=== PATIENT | female | born 1995 | race Caucasian/White ===

== ENCOUNTER 2017-05-27 10:05 | Emergency (ER) | payer OTHER ==
[~2017-05-27] VITALS: Ht 182.9 cm; Wt 56.5 kg
[~2017-05-27 10:05] MED LIST: ALBU1.25 NEB; OMEP20CA5 PO; PRED20 PO
[2017-05-27 10:09] VITALS: BP 132/82; PULSE 92; RESP 12; TEMP 98.2; O2SAT 98
[2017-05-27] MEDS ORDERED: TETANUS/DIPHTHERIA TOXOID ADULT 0.5 ML VIAL IM ONE (10:45)
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
[2017-05-27 12:00] VITALS: BP 120/81; PULSE 86; RESP 15; TEMP 97.7; O2SAT 98
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
[2017-05-27] MEDS ORDERED: IOHEXOL 350 MG/ML 10 ML VIAL (for RAD DIAG) IVCONTRAST ONE (12:03)
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
[2017-05-27] MEDS ORDERED: HYDR-3577 PO (13:43)
[2017-05-27] MEDS ORDERED: CYCL10TA PO (13:43)
[2017-05-27] MEDS ORDERED: KETOROLAC TROMETHAMINE 60 MG/2 ML (IM) VIAL IM ONE (13:45)
[2017-05-27 14:00] VITALS: BP 118/76; PULSE 77; RESP 15; TEMP 97.9; O2SAT 99
[2017-05-27] MEDS ORDERED: [UNRECOGNIZED DRUG - CODE] PO (14:08)
[2017-05-27 14:48] VITALS: RESP 16
[2017-05-27 15:23] VITALS: BP 120/67; TEMP 97.7
== END 2017-05-27 15:25 | disposition home or self-care (01) ==
LOC: NEPC 10:05
DX: S22.42XA Multiple fractures of ribs, left side, initial encounter for closed fracture (principal); S09.90XA Unspecified injury of head, initial encounter; M50.222 Other cervical disc displacement at C5-C6 level; S00.81XA Abrasion of other part of head, initial encounter; S00.03XA Contusion of scalp, initial encounter; Y08.89XA Assault by other specified means, initial encounter; Z23 Encounter for immunization
CPT/HCPCS: 70450; 71260; 72125; 73070; 74177; 84703; 90471; 90714; 96372; 99285; J1885; Q9967